=== PATIENT | female | born 1945 | race Caucasian/White ===

== ENCOUNTER 2017-10-30 09:09 | Emergency (ER) | payer OTHER, MEDICARE ==
[2017-10-30] MEDS: morphine 4 MG/ML VIAL IV (09:40)
[2017-10-30] MEDS: ONDANSETRON 4 MG INJ IV (09:40)
[2017-10-30] MEDS: SOD CHLORIDE 0.9% 500 ML IV (09:40)
[2017-10-30] MEDS: ACETAMINOPHEN 500 MG TAB PO (09:57)
[2017-10-30 09:59] LABS: ADD MAN DIFF? NO
[2017-10-30 10:03] LABS: BASOPHILS % 0.6 % (0.0-2.0); EOSINOPHILS # 0.1 10^3/ul (0.0-0.5); EOSINOPHILS % 1.4 % (0.0-7.0); HEMATOCRIT 37.7 % (37.0-47.0); HEMOGLOBIN 12.2 g/dl (12.0-16.0); LYMPHOCYTES # 2.1 10^3/ul (0.8-2.9); LYMPHOCYTES % 33.5 % (15.0-51.0); MEAN CORPUSCULAR HEMOGLOBIN 29.5 pg (29.0-33.0); MEAN CORPUSCULAR HGB CONC 32.4 g/dl (32.0-37.0); MEAN CORPUSCULAR VOLUME 91.3 fl (82.0-101.0); MEAN PLATELET VOLUME 10.1 fl (7.4-10.4); MONOCYTE # 0.5 10^3/ul (0.3-0.9); MONOCYTES % 7.8 % (0.0-11.0); NEUTROPHIL # 3.6 10^3/ul (1.6-7.5); NEUTROPHILS % 56.4 % (39.0-77.0); PLATELET COUNT 300 10^3/UL (140-415); RED BLOOD COUNT 4.13 10^6/ul (4.20-5.40)
[2017-10-30 10:03] LABS: WHITE BLOOD COUNT 6.3 10^3/ul (4.8-10.8)
[2017-10-30 10:21] LABS: ANION GAP 13 (8-16); BLOOD UREA NITROGEN 33 mg/dl (7-20); CALCIUM 9.6 mg/dl (8.4-10.2); CARBON DIOXIDE 30 mmol/L (21-31); CHLORIDE 101 mmol/L (97-110); CREATININE 1.29 mg/dl (0.44-1.00); GLUCOSE 134 mg/dl (70-220); POTASSIUM 4.3 mmol/L (3.5-5.1); SODIUM 140 mmol/L (135-144)
[2017-10-30 10:40] LABS: INR 0.98; PROTIME 13.1 Sec (11.9-14.9)
[2017-10-30 10:41] LABS: PARTIAL THROMBOPLASTIN TIME 24.1 Sec (25.0-35.0)
[2017-10-30] MEDS: HYDROmorphONE 0.5 MG/0.5 ML SYG IV (10:54)
== END 2017-10-30 14:43 | disposition short-term general hospital (02) ==
LOC: E/R 09:09
DX: S72.002A Fracture of unspecified part of neck of left femur, initial encounter for closed fracture (principal); N28.9 Disorder of kidney and ureter, unspecified; M79.605 Pain in left leg; W17.89XA Other fall from one level to another, initial encounter; Y92.89 Other specified places as the place of occurrence of the external cause
CPT/HCPCS: 71045; 72170; 73510; 73550; 80048; 85025; 85610; 85730; 93005; 96374; 96375; 99285-25